=== PATIENT | male | born 1975 | race Caucasian/White ===

== ENCOUNTER 2019-12-24 09:45 | Emergency (ER) | payer BC ==
[~2019-12-24] VITALS: Ht 193 cm; Wt 55.8 kg
[2019-12-24 09:50] VITALS: BP 123/76
--- NOTE | 2019-12-24 09:56 | NUR ---
Patient ambulated to bed 4. RN evaluating patient at bedside.
--- NOTE | 2019-12-24 10:09 | NUR ---
Dr. Denney is evaluating the patient at bedside.
--- NOTE | 2019-12-24 10:14 | NUR ---
AAO X4 44 YR OLD M C/O INTERMITTENT CHEST PAIN X 1 MONTH. DENIES CP AT THIS TIME. REFERRED BY PCP FOR BRADYCARDIA AND CP. DENIES HX
--- NOTE | 2019-12-24 10:21 | NUR ---
business office technician at bedside.
[2019-12-24 11:04] LABS: BASOPHILS # (AUTO) 0.1 K/uL (0.00-0.22); BASOPHILS % (AUTO) 1.4 % (0.0-2.0); EOSINOPHILS # (AUTO) 0.1 K/uL (0-0.4); EOSINOPHILS % (AUTO) 2.3 % (0.0-4.0); HEMATOCRIT 44.3 % (36-52); HEMOGLOBIN 14.9 g/dL (12.0-18.0); LYMPHOCYTES # (AUTO) 1.7 K/uL (2.0-11.5); LYMPHOCYTES % (AUTO) 33.1 % (20.5-51.1); MEAN CORPUSCULAR HEMOGLOBIN 31 pg (27-31); MEAN CORPUSCULAR HGB CONC 34 g/dL (33-37); MEAN CORPUSCULAR VOLUME 92.2 fL (80-94); MONOCYTES # (AUTO) 0.4 K/uL (0.8-1.0); MONOCYTES % (AUTO) 7.6 % (1.7-9.3); NEUTROPHILS # (AUTO) 2.8 K/uL (1.8-7.7); NEUTROPHILS % (AUTO) 55.6 % (42.2-75.2); PLATELET COUNT (AUTO) 260 K/uL (140-450); RED BLOOD CELL COUNT(AUTO) 4.81 MIL/uL (4.20-6.10); RED CELL DISTRIBUTION WIDTH 12.7 % (11.6-13.7)
[2019-12-24 11:21] LABS: ANION GAP 11.7 (8-16); CARBON DIOXIDE 29.2 mmol/L (21-32); CREATININE 1.1 mg/dL (0.6-1.3); POTASSIUM 4.9 mmol/L (3.5-5.1)
--- NOTE | 2019-12-24 11:43 | NUR ---
PATIENT ELOPED FROM FACILITY. DISCHARGE INSTRUCTIONS NOT GIVEN TO PATIENT. DR. ROMERO NOTIFIED.
== END 2019-12-24 11:43 | disposition left against medical advice (07) ==
LOC: MED 09:45
DX: R07.89 Other chest pain (principal)
CPT/HCPCS: 36415; 71045; 80048; 84484; 85025; 93005; 99285; Q0092